=== PATIENT | female | born 1985 | race Two or more races ===

== ENCOUNTER 2016-10-18 19:06 | Emergency (ER) | payer BC ==
[~2016-10-18 19:06] MED LIST: AMOXIL875 MG PO; COUMADIN; COUMADIN5 MG; COUMADIN5 MG PO; COUMADIN7.5 MG; KEFLEX500 M3 PO; KEFLEX500 MG PO; LOVENOX60 MG/0.6; NORCO 5/325 TAB1 TAB; PERCOCET 5/3251 TAB PO; SEPTRA DS TABLE1 TAB PO; WARFARIN SODIUM5 MG; YASMIN 28 TABLE1 TAB; ZOFRAN4 MG PO; [UNRECOGNIZED DRUG - REMARK]
[2016-10-18 20:07] LABS: URINE BILIRUBIN NEGATIVE (NEG); URINE BLOOD SMALL (NEG); URINE GLUCOSE (UA) NEGATIVE (NEG); URINE KETONE NEGATIVE (NEG); URINE LEUKOCYTE ESTERASE NEGATIVE (NEG); URINE NITRITE NEGATIVE (NEG); URINE PH 6.5 (5.0-8.0); URINE PROTEIN NEGATIVE (NEG); URINE SPECIFIC GRAVITY 1.015 (1.003-1.030)
[2016-10-18 20:09] LABS: URINE APPEARANCE CLEAR; URINE COLOR YELLOW
[2016-10-18 20:18] LABS: BASO % 0.5 % (0-2); EOSINOPHIL ABSOLUTE COUNT 0.1 tho/cmm (0.0-0.7); HCT-HEMATOCRIT 40.3 % (34.0-49.0); IMMATURE GRANULOCYTES ABSOLUTE 0.01 tho/cmm (0-0.03); IMMATURE GRANULOCYTES PERCENT 0.2 % (0-0.3); LYMPH % 30.5 % (20-45); LYMPH ABSOLUTE COUNT 1.4 tho/cmm (0.8-4.5); MCH (MEAN CORPUSCULAR HGB) 29.9 pg (28.0-32.0); MCHC MEAN CORPUSCULAR HGB CONC 34.7 % (32.0-36.0); MCV (MEAN CELL VOLUME) 86.1 fl (82.0-96.0); MEAN PLATELET VOLUME 9.7 cmc (9.4-12.4); MONO % 12.2 % (0-12); MONOCYTE ABSOLUTE COUNT 0.5 tho/cmm (0.0-1.2); NEUTROPHIL ABSOLUTE COUNT 2.4 tho/cmm (1.6-8.0); NEUTROPHIL-AUTOMATED 2.4 tho/cmm (1.6-8.0); NEUTROPHILS % 54.6 % (40-80); PLATELET COUNT 266 tho/cmm (150-450); RED BLOOD COUNT 4.68 mil/cmm (4.00-5.20); RED CELL DISTRIBUTION WIDTH 12.6 % (12.4-16.4); WHITE BLOOD COUNT 4.4 tho/cmm (4.0-10.0)
[2016-10-18 20:31] LABS: URINE AMORPHOUS 1+; URINE WBC RARE /[HPF] (0-5)
[2016-10-18 20:34] LABS: ANION GAP 13 mmol/L (0-20); BLOOD UREA NITROGEN 13 mg/dl (6-24); CALCIUM 8.5 mg/dl (8.5-10.5); CARBON DIOXIDE-VENOUS 27 mmol/L (22-32); CHLORIDE 108 mmol/l (96-110); CREATININE 0.76 mg/dl (0.50-1.10); GLUCOSE 84 mg/dL (70-110); POTASSIUM 3.8 mmol/L (3.7-5.1); SODIUM 144 mmol/L (135-145); eGFR VALUE FOR BLACK >90 mL/Min
[2016-10-18 21:48] LABS: ALB/GLOB RATIO 0.9 (0.8-2.0); ALBUMIN 3.4 g/dl (3.5-5.0); ALKALINE PHOSPHATASE 56 U/L (33-138); ALT/SGPT 21 U/L (12-78); AST/SGOT 15 U/L (10-40); BILIRUBIN,DIRECT <0.1 mg/dl (0.0-0.3); BILIRUBIN,INDIRECT 0.2 mg/dL (0.0-1.0); BILIRUBIN,TOTAL 0.3 mg/dl (0-1.5); LIPASE 172 U/L (73-393)
[2016-10-18] MEDS ORDERED: NORCO 5-325 TA1 EACH PO (22:56)
[2016-10-18] MEDS ORDERED: IBUPROFEN600 M1 PO (22:56)
== END 2016-10-18 23:06 ==
LOC: EDMED 19:06
PROVIDERS: Emergency Medicine
DX: J90 Pleural effusion, not elsewhere classified (principal); M54.9 Dorsalgia, unspecified; Z86.718 Personal history of other venous thrombosis and embolism; Z98.890 Other specified postprocedural states
CPT/HCPCS: J1170; J1885; J7030